=== PATIENT | male | born 1980 ===

== ENCOUNTER 2021-03-10 11:37 | Emergency (ER) | payer SELFPAY ==
[~2021-03-10] VITALS: Ht 167.6 cm; Wt 74.8 kg
[2021-03-10 12:23] LABS: Basophils # (auto) 0 10 ^3/uL (0-0.2); Basophils % (auto) 0.1 % (0.0-2.0); Eosinophils # (auto) 0 10 ^3/uL (0-0.8); Hematocrit 46.5 % (41.0-53.0); Hemoglobin 15.4 g/dL (13.5-17.5); Lymphocytes # (auto) 1.6 10 ^3/uL (0.4-5.4); Lymphocytes % (auto) 9.8 % (10.0-50.0); Mean Corpuscular Hemoglobin 30.3 pg (28.0-32.0); Mean Corpuscular Hgb Conc. 33.1 g/dL (32.0-36.0); Mean Corpuscular Volume 91.4 fL (80.0-100.0); Monocytes # (auto) 1.3 10 ^3/uL (0-1.3); Monocytes % (auto) 8.1 % (0.0-12.0); Neutrophils # (auto) 13.6 10 ^3/uL (1.6-8.6); Nucleated Red Blood Cells % 0.1 %; Platelet Count (auto) 414 10^3/uL (140-450); Red Blood Cells 5.09 10^6/uL (4.5-5.90); Red Cell Distribution Width 13.6 % (11.8-14.3); White Blood Cell 16.6 10^3/uL (4.4-10.8)
[2021-03-10 12:41] LABS: Urine Bacteria NONE SEEN /hpf (None Seen); Urine Blood Negative /uL (Negative); Urine Mucus FEW (None Seen); Urine Specific Gravity 1.028 (1.001-1.035); Urine WBC 1 /hpf (0 - 3)
[2021-03-10 12:42] LABS: Acetaminophen < 2.0 ug/mL (10-30); Salicylate < 1.7 mg/dL (2.8-20.0)
[2021-03-10 12:43] LABS: Albumin 4.2 g/dL (3.4-5.0); Anion Gap 11 (5-15); Blood Alcohol < 3.0 mg/dL (0-5); Blood Urea Nitrogen 7 mg/dL (7-18); Carbon Dioxide 24 mmol/L (21-32); Chloride 100 mmol/L (98-107); Glucose 96 mg/dL (74-106); Potassium 3.8 mmol/L (3.5-5.1); Sodium 135 mmol/L (136-145)
[2021-03-10 12:48] LABS: Alanine Aminotransferase 26 U/L (16-61); Alkaline Phosphatase 93 U/L (45-117); Aspartate Aminotransferase 12 U/L (15-37); BUN/Creatinine Ratio 6.7; Bilirubin, Total 0.8 mg/dL (0.2-1.0); GFR African American 101 mL/min; GFR Non-African American 84 mL/min; Total Protein 8.2 g/dL (6.4-8.2)
[2021-03-10 13:13] LABS: Amphetamine Screen, Urine NEGATIVE (NEGATIVE); Barbiturate Scree,Urine NEGATIVE (NEGATIVE); Cannabinoid Screen, Urine POSITIVE (NEGATIVE); Cocaine Screen, Urine NEGATIVE (NEGATIVE); Opiate Scree,Urine NEGATIVE (NEGATIVE); Phencyclidine Screen, Urine NEGATIVE (NEGATIVE)
[2021-03-10 13:20] LABS: Benzodiazephine Screen, Urine NEGATIVE (NEGATIVE)
[2021-03-10 18:00] VITALS: BP 127/81
== END 2021-03-10 23:02 | disposition home or self-care (01) ==
LOC: ER 11:37 → EDBD 11:37 → ER 23:02
DX: R45.851 Suicidal ideations (principal); Z20.822 Contact with and (suspected) exposure to COVID-19
CPT/HCPCS: 36415; 80053; 80307; 80320; 80329; 81001; 85025; 87426